=== PATIENT | male | born 1955 | race American Indian/Alaskan Native ===

== ENCOUNTER 2020-01-29 23:19 | Emergency (ER) | payer SELFPAY ==
--- NOTE | 2020-01-30 00:34 | XRay Report ---
HISTORY:right hand pain and swelling. COMPARISON: None. TECHNIQUE: AP lateral and obliques views were obtained FINDINGS: Bones: No fracture or dislocation. Joint spaces: Maintained. Soft tissues: No significant abnormality. Additional findings: None. IMPRESSION: 1. No significant abnormality. Signer Name: Timmy Ybarra MD Signed: 01/30/2020 12:30 AM Workstation Name: [id number]
[2020-01-30] MEDS ORDERED: predniSONE 20 MG TAB PO ONE (02:57)
[2020-01-30] MEDS ORDERED: KETOROLAC 30 MG/1 ML INJ IM ONE (02:57)
--- NOTE | 2020-01-30 03:02 | Emergency Department Report ---
ED Extremity Problem HPI - General Chief complaint: Extremity Injury, Upper Stated complaint: RIGHT HAND SWELLING Time Seen by Provider: 01/30/20 02:50 Source: patient Mode of arrival: Ambulatory Limitations: No Limitations - History of Present Illness Initial comments: 64-year-old -[place] male patient with history of hypertension presents with complaints of right hand pain and swelling x2 days. He denies any injuries to his hand. He rates his pain as a 10/10 in severity and states he has decreased range of motion of the hand. He denies numbness/tingling/weakness, known insect bite, or fever/chills/sweats. He does report history of gout in his knee once. Location: right History of Same: No -: No myalgia, No fever Severity scale (0 -10): 10 Quality: aching, constant Consistency: constant Improves with: nothing - Related Data Previous Rx's Medication Instructions Recorded Last Taken Type Acetaminophen/Codeine [Tylenol 1 tab PO Q6H PRN #8 tab 01/30/20 Unknown Rx /Codeine # 3 tab] Clindamycin [Clindamycin CAP] 300 mg PO Q6H 10 Days #40 capsule 01/30/20 Unknown Rx predniSONE [Deltasone] 20 mg PO TID 3 Days #9 tab 01/30/20 Unknown Rx Allergies Allergy/AdvReac Type Severity Reaction Status Date / Time No Known Allergies Allergy Verified 01/29/20 23:26 ED Review of Systems ROS: Stated complaint: RIGHT HAND SWELLING Other details as noted in HPI Constitutional: denies: chills, diaphoresis, fever, malaise, weakness Musculoskeletal: joint swelling, arthralgia Skin: change in color. denies: rash, lesions Neurological: denies: numbness, paresthesias ED Past Medical Hx - Past Medical History Previous Medical History?: Yes Hx Hypertension: Yes - Surgical History Past Surgical History?: No - Social History Smoking Status: Current Some Day Smoker Substance Use Type: None - Medications Home Medications: Home Medications Medication Instructions Recorded Confirmed Last Taken Type Acetaminophen/Codeine [Tylenol 1 tab PO Q6H PRN #8 tab 01/30/20 Unknown Rx /Codeine # 3 tab] Clindamycin [Clindamycin CAP] 300 mg PO Q6H 10 Days #40 capsule 01/30/20 Unknown Rx predniSONE [Deltasone] 20 mg PO TID 3 Days #9 tab 01/30/20 Unknown Rx ED Physical Exam - General Limitations: No Limitations General appearance: alert, in no apparent distress - Head Head exam: Present: atraumatic, normocephalic - Eye Eye exam: Present: normal appearance. Absent: scleral icterus - Respiratory Respiratory exam: Absent: respiratory distress - Cardiovascular Cardiovascular Exam: Present: regular rate - Expanded Upper Extremity Exam Right Forearm Wrist exam: Present: normal inspection Hand Wrist exam: Present: tenderness, swelling, erythema, other (Moderate swelling, warmth, and erythema noted to dorsal aspect of right hand. Decreased range of motion of the fingers noted secondary to pain. Normal perfusion and sensation noted). Absent: deformity ED Course Vital Signs 01/29/20 01/30/20 01/30/20 23:26 03:00 04:15 Temperature 97.6 F 98.9 F Pulse Rate 94 H 88 Respiratory 18 18 18 Rate Blood Pressure 196/118 Blood Pressure 184/96 187/89 [Left] O2 Sat by Pulse 99 100 100 Oximetry ED Medical Decision Making - Lab Data Result diagrams: 01/30/20 03:03 01/30/20 03:03 Lab Results 01/30/20 01/30/20 01/30/20 Range/Units 03:03 03:03 03:08 WBC 11.6 H (4.5-11.0) K/mm3 RBC 4.99 (3.65-5.03) M/mm3 Hgb 16.1 H (11.8-15.2) gm/dl Hct 46.8 H (35.5-45.6) % MCV 94 (84-94) fl MCH 32 (28-32) pg MCHC 34 (32-34) % RDW 12.8 L (13.2-15.2) % Plt Count 273 (140-440) K/mm3 Lymph % (Auto) 16.2 (13.4-35.0) % Coleman % (Auto) 9.0 H (0.0-7.3) % Eos % (Auto) 0.6 (0.0-4.3) % Baso % (Auto) 0.5 (0.0-1.8) % Lymph # 1.9 (1.2-5.4) K/mm3 Coleman # 1.0 H (0.0-0.8) K/mm3 Eos # 0.1 (0.0-0.4) K/mm3 Baso # 0.1 (0.0-0.1) K/mm3 Seg Neutrophils % 73.7 H (40.0-70.0) % Seg Neutrophils # 8.6 H (1.8-7.7) K/mm3 Sodium 135 L (137-145) mmol/L Potassium 4.2 (3.6-5.0) mmol/L Chloride 97.3 L (98-107) mmol/L Carbon Dioxide 21 L (22-30) mmol/L Anion Gap 21 mmol/L BUN 20 (9-20) mg/dL Creatinine 1.0 (0.8-1.5) mg/dL Estimated GFR > 60 ml/min BUN/Creatinine Ratio 20 % Glucose 109 H (75-100) mg/dL Uric Acid 6.2 (3.5-7.6) mg/dL Calcium 9.8 (8.4-10.2) mg/dL - Radiology Data Radiology results: report reviewed Procedure(s): XR hand 3+V RT Accession Number(s): [id number] cc: ED DOC, Fluoro Time In Minutes: HISTORY:right hand pain and swelling. COMPARISON: None. TECHNIQUE: AP lateral and obliques views were obtained FINDINGS: Bones: No fracture or dislocation. Joint spaces: Maintained. Soft tissues: No significant abnormality. Additional findings: None. IMPRESSION: 1. No significant abnormality. - Medical Decision Making Patient here with complaints of sudden onset of right hand pain and swelling x2 days. On exam, the dorsal aspect of the hand is significantly erythemic and tender with moderate swelling. X-ray of the hand is normal. CBC shows mildly elevated white count at 11.6. Uric acid is normal. Vitals are stable and patient is afebrile. Cellulitis versus gout. Will treat for cellulitis with clindamycin. Recommend follow-up with primary care provider within 3 days. D iscussed strict return precautions in great detail with patient who verbalizes understanding. Also discussed need for follow-up with a primary care provider concerning uncontrolled hypertension. Critical care attestation.: If time is entered above; I have spent that time in minutes in the direct care of this critically ill patient, excluding procedure time. ED Disposition Clinical Impression: Cellulitis of right hand, Uncontrolled hypertension Disposition: TO HOME OR SELFCARE Is pt being admited?: No Condition: Stable Instructions: Cellulitis (ED), Acute Gouty Arthritis (ED), Hypertension (ED) Prescriptions: Clindamycin [Clindamycin CAP] 300 mg PO Q6H 10 Days #40 capsule predniSONE [Deltasone] 20 mg PO TID 3 Days #9 tab Acetaminophen/Codeine [Tylenol /Codeine # 3 tab] 1 tab PO Q6H PRN #8 tab PRN Reason: Pain , Severe (7-10) Referrals: KARY HOLGUIN MD [Staff Physician] - 02/02/20 Forms: Work/School Release Form(ED)
[2020-01-30] MEDS ORDERED: hydrALAZINE 25 MG TAB PO ONE (03:17)
[2020-01-30] MEDS ORDERED: hydrALAZINE 25 MG TAB ONE (03:17)
[2020-01-30 03:20] LABS: Basophils # (Auto) 0.1 K/mm3 (0.0-0.1); Basophils % (Auto) 0.5 % (0.0-1.8); Eosinophils # (Auto) 0.1 K/mm3 (0.0-0.4); Eosinophils % (Auto) 0.6 % (0.0-4.3); Hematocrit 46.8 % (35.5-45.6); Hemoglobin 16.1 gm/dl (11.8-15.2); Lymphocytes # (Auto) 1.9 K/mm3 (1.2-5.4); Lymphocytes % (Auto) 16.2 % (13.4-35.0); Mean Corpuscular HGB Conc 34 % (32-34); Mean Corpuscular Volume 94 fl (84-94); Platelet Count 273 K/mm3 (140-440); Red Blood Count 4.99 M/mm3 (3.65-5.03); Red Cell Distribution Width 12.8 % (13.2-15.2)
[2020-01-30 03:36] LABS: BUN/Creatinine Ratio 20; Blood Urea Nitrogen 20 mg/dL (9-20); Calcium 9.8 mg/dL (8.4-10.2); Hemolysis Index 17
[2020-01-30 04:17] VITALS: BP 187/89
== END 2020-01-30 04:39 | disposition home or self-care (01) ==
LOC: ED 23:19
DX: L03.113 Cellulitis of right upper limb (principal); I10 Essential (primary) hypertension; F17.200 Nicotine dependence, unspecified, uncomplicated
CPT/HCPCS: 36415; 73130; 80048; 84550; 85025; 96372; 99284; J1885; J7512

== ENCOUNTER 2020-11-01 07:42 | Emergency (ER) | payer SELFPAY ==
[2020-11-01 07:54] VITALS: BP 178/95
--- NOTE | 2020-11-01 09:20 | Emergency Department Report ---
ED General Adult HPI - General Chief complaint: Extremity Injury, Lower Stated complaint: RT LEG PAIN PUI?: No Time Seen by Provider: 11/01/20 09:17 Source: patient Mode of arrival: Ambulatory Limitations: No Limitations - History of Present Illness Initial comments: Patient is a 65-year-old -Turkish male comes to the ER complaining of right knee and right great toe pain. He states this is his usual gout pain. However, he is out of his colchicine. He denies any trauma. He denies any calf pain or hip pain. He denies any fall. He states he was working yesterday and the gout pain became so severe he had to leave work. He is ambulatory and nontoxic on arrival to the ER. Patient states the pain is just a constant dull aching severe pain nothing makes it better movement makes it somewhat worse. Patient has taken nothing at home prior to arrival to relieve the pain. -: Gradual, days(s) - Related Data Previous Rx's Medication Instructions Recorded Last Taken Type Colchicine 0.6 mg PO DAILY #11 capsule 11/01/20 Unknown Rx Ibuprofen [Motrin] 800 mg PO Q8HR PRN #30 tablet 11/01/20 Unknown Rx predniSONE [Deltasone] 20 mg PO DAILY #5 tablet 11/01/20 Unknown Rx Allergies Allergy/AdvReac Type Severity Reaction Status Date / Time No Known Allergies Allergy Verified 01/29/20 23:26 ED Review of Systems ROS: Stated complaint: RT LEG PAIN Other details as noted in HPI Comment: All other systems reviewed and negative ED Past Medical Hx - Past Medical History Hx Hypertension: Yes Additional medical history: gout - Surgical History Past Surgical History?: No - Family History Family history: no significant - Social History Smoking Status: Never Smoker Substance Use Type: None - Medications Home Medications: Home Medications Medication Instructions Recorded Confirmed Last Taken Type Colchicine 0.6 mg PO DAILY #11 capsule 11/01/20 Unknown Rx Ibuprofen [Motrin] 800 mg PO Q8HR PRN #30 tablet 11/01/20 Unknown Rx predniSONE [Deltasone] 20 mg PO DAILY #5 tablet 11/01/20 Unknown Rx ED Physical Exam - General Limitations: No Limitations General appearance: alert, in no apparent distress - Head Head exam: Present: atraumatic, normocephalic - Eye Eye exam: Present: normal appearance - ENT ENT exam: Present: mucous membranes moist - Neck Neck exam: Present: normal inspection - Respiratory Respiratory exam: Present: normal lung sounds bilaterally. Absent: respiratory distress - Cardiovascular Cardiovascular Exam: Present: regular rate, normal rhythm. Absent: systolic murmur, diastolic murmur, rubs, gallop - GI/Abdominal GI/Abdominal exam: Present: soft, normal bowel sounds - Rectal Rectal exam: Present: deferred - Extremities Exam Extremities exam: Present: normal inspection - Back Exam Back exam: Present: normal inspection - Neurological Exam Neurological exam: Present: alert, oriented X3 - Psychiatric Psychiatric exam: Present: normal affect, normal mood - Skin Skin exam: Present: warm, dry, intact, normal color. Absent: rash ED Course Vital Signs 11/01/20 07:52 Temperature 97.3 F L Pulse Rate 94 H Respiratory 20 Rate Blood Pressure 178/95 O2 Sat by Pulse 97 Oximetry ED Medical Decision Making - Medical Decision Making Patient has acute on chronic gout. He has been educated on diet and alcohol use and its relation to gout. He is also been educated on the need to have a follow-up primary care physician that can give him his medications as needed for his gout. Patient is neurovascularly intact. He has +2 DP and PT pulses bilaterally his calf is nontender. He has no effusion of either knee. His hips are nontender and he is ambulatory. Patient being discharged home with follow-up instructions including diet, activity, medications and follow-up. Patient verbalizes understanding of discharge plan of care Vital Signs 11/01/20 07:52 Temperature 97.3 F L Pulse Rate 94 H Respiratory 20 Rate Blood Pressure 178/95 O2 Sat by Pulse 97 Oximetry - Differential Diagnosis a/c gout Critical care attestation.: If time is entered above; I have spent that time in minutes in the direct care of this critically ill patient, excluding procedure time. ED Disposition Clinical Impression: Gout flare, History of chronic hypertension, Nonadherence to medication Disposition: DC-01 TO HOME OR SELFCARE Is pt being admited?: No Does the pt Need Aspirin: No Condition: Stable Instructions: Low-Purine Eating Plan Additional Instructions: Diet as tolerated. Avoid alcohol and red meats see instructions attached Hydrate well with water Medications as ordered today Follow-up with PCP given below. He can help you get your blood pressure medications. Hold onto the prescription card and I have given you today it will help you with discounted medications. Warm compresses may help with your pain. Prescriptions: Colchicine 0.6 mg PO DAILY #11 capsule predniSONE [Deltasone] 20 mg PO DAILY #5 tablet Ibuprofen [Motrin] 800 mg PO Q8HR PRN #30 tablet PRN Reason: Pain, Moderate (4-6) Referrals: KARY HOLGUIN MD [Staff Physician] - 3-5 Days Forms: Work/School Release Form(ED), Work/School Release Form Time of Disposition: 09:18
== END 2020-11-01 09:37 | disposition home or self-care (01) ==
LOC: ED 07:42
DX: M10.9 Gout, unspecified (principal); I10 Essential (primary) hypertension; Z91.19 Patient's noncompliance with other medical treatment and regimen; Z79.899 Other long term (current) drug therapy
CPT/HCPCS: 99282

== ENCOUNTER 2021-03-30 06:46 | Emergency (ER) | payer SELFPAY ==
[2021-03-30] MEDS ORDERED: dexAMETHasone 20 MG/5 ML VIAL IM ONE (10:14)
[2021-03-30] MEDS ORDERED: HYDROcodone/ACETAMINOPHEN 5-325 MG TAB PO ONE (10:14)
[2021-03-30] MEDS ORDERED: KETOROLAC 30 MG/1 ML INJ IM ONE (10:14)
--- NOTE | 2021-03-30 10:21 | Emergency Department Report ---
ED General Adult HPI - General Chief complaint: Extremity Injury, Upper Stated complaint: LT HAND SWELLING Time Seen by Provider: 03/30/21 10:10 Source: patient Mode of arrival: Ambulatory Limitations: No Limitations - History of Present Illness Initial comments: 65-year-old male with past history of gout presenting with complaints of pain to his left hand, gradual onset yesterday. Reports there is associated swelling but denies fevers or systemic complaints. States that this is the same thing that happened when he was diagnosed with gout about 6 months ago. Pain is moderate, worse with movement, better with rest. - Related Data Previous Rx's Medication Instructions Recorded Last Taken Type Ibuprofen [Motrin] 800 mg PO Q8HR PRN #30 tablet 11/01/20 Unknown Rx predniSONE [Deltasone] 20 mg PO DAILY #5 tablet 11/01/20 Unknown Rx Colchicine 0.6 mg PO DAILY #3 tab 03/30/21 Unknown Rx Indomethacin 50 mg PO Q8H #21 capsule 03/30/21 Unknown Rx dexAMETHasone [Dexamethasone] 4 mg PO DAILY #5 tablet 03/30/21 Unknown Rx Allergies Allergy/AdvReac Type Severity Reaction Status Date / Time No Known Allergies Allergy Verified 01/29/20 23:26 ED Review of Systems ROS: Stated complaint: LT HAND SWELLING Other details as noted in HPI Comment: All other systems reviewed and negative ED Past Medical Hx - Past Medical History Hx Hypertension: Yes Additional medical history: gout - Surgical History Past Surgical History?: No - Social History Smoking Status: Never Smoker - Medications Home Medications: Home Medications Medication Instructions Recorded Confirmed Last Taken Type Ibuprofen [Motrin] 800 mg PO Q8HR PRN #30 tablet 11/01/20 Unknown Rx predniSONE [Deltasone] 20 mg PO DAILY #5 tablet 11/01/20 Unknown Rx Colchicine 0.6 mg PO DAILY #3 tab 03/30/21 Unknown Rx Indomethacin 50 mg PO Q8H #21 capsule 03/30/21 Unknown Rx dexAMETHasone [Dexamethasone] 4 mg PO DAILY #5 tablet 03/30/21 Unknown Rx ED Physical Exam - General Limitations: No Limitations General appearance: alert, in no apparent distress - Head Head exam: Present: atraumatic, normocephalic - Eye Eye exam: Present: normal appearance - ENT ENT exam: Present: mucous membranes moist - Neck Neck exam: Present: normal inspection - Respiratory Respiratory exam: Absent: respiratory distress - Extremities Exam Extremities exam: Present: other (There is swelling to the left hand diffusely with slightly restricted range of motion, no erythema or warmth, normal cap refill, sensation intact, normal radial pulse) - Back Exam Back exam: Present: normal inspection - Neurological Exam Neurological exam: Present: alert, oriented X3 - Psychiatric Psychiatric exam: Present: normal affect, normal mood - Skin Skin exam: Present: warm, dry, intact, normal color. Absent: rash ED Course Vital Signs 03/30/21 07:21 Temperature 98.5 F Pulse Rate 95 H Respiratory 18 Rate Blood Pressure 178/88 O2 Sat by Pulse 97 Oximetry ED Medical Decision Making - Medical Decision Making Patient presents with atraumatic left hand pain and swelling since yesterday. He reports a history of gout and states that this feels the same. On exam the left hand is diffusely swollen, neurovascular intact. We will treat with Toradol Decadron, outpatient prescription and referred to primary for follow- up. - Differential Diagnosis Gout, pseudogout, cellulitis Critical care attestation.: If time is entered above; I have spent that time in minutes in the direct care of this critically ill patient, excluding procedure time. ED Disposition Clinical Impression: Gout of hand Qualifiers: Gout etiology: unspecified cause Chronicity: acute Laterality: left Qualified Code(s): M10.9 - Gout, unspecified Disposition: TO HOME OR SELFCARE Is pt being admited?: No Condition: Good Instructions: Low-Purine Eating Plan Prescriptions: Colchicine 0.6 mg PO DAILY #3 tab dexAMETHasone [Dexamethasone] 4 mg PO DAILY #5 tablet Indomethacin 50 mg PO Q8H #21 capsule Referrals: PRIMARY CARE, [Primary Care Provider] - 3-5 Days Time of Disposition: 10:23
[2021-03-30 11:34] VITALS: BP 164/80
== END 2021-03-30 11:05 | disposition home or self-care (01) ==
LOC: ED 06:46
DX: M10.9 Gout, unspecified (principal); I10 Essential (primary) hypertension; Z79.1 Long term (current) use of non-steroidal anti-inflammatories (NSAID); Z79.899 Other long term (current) drug therapy
CPT/HCPCS: 96372; 99282; J1100; J1885

== ENCOUNTER 2021-09-17 08:00 | Emergency (ER) | payer MEDICARE ==
[2021-09-17 10:31] VITALS: BP 188/102
--- NOTE | 2021-09-17 10:36 | Emergency Department Report ---
ED General Adult HPI - General Chief complaint: Extremity Problem,Nontraumatic Stated complaint: hands swollen Time Seen by Provider: 09/17/21 10:12 Source: patient Mode of arrival: Ambulatory Limitations: No Limitations - History of Present Illness Initial comments: Patient is a 66-year-old male presents emergency room complaints of left hand swelling that began a couple days ago. Patient has a history of gout and arthritis. He denies any fall or injury. He denies any numbness or weakness. He denies any redness or rashes. Patient has a past medical history of hypertension. He states that he has not seen a doctor in approximately a year or 2 and is not currently taking any blood pressure medicine. He is not sure what he was previously taking. No allergies to medications. - Related Data Previous Rx's Medication Instructions Recorded Last Taken Type Ibuprofen [Motrin] 800 mg PO Q8HR PRN #30 tablet 11/01/20 Unknown Rx predniSONE [Deltasone] 20 mg PO DAILY #5 tablet 11/01/20 Unknown Rx Colchicine 0.6 mg PO DAILY #3 tab 03/30/21 Unknown Rx Indomethacin 50 mg PO Q8H #21 capsule 03/30/21 Unknown Rx dexAMETHasone [Dexamethasone] 4 mg PO DAILY #5 tablet 03/30/21 Unknown Rx Colchicine 0.6 mg PO DAILY 1 Days #3 tablet 09/17/21 Unknown Rx Indomethacin 50 mg PO Q8H #21 capsule 09/17/21 Unknown Rx amLODIPine 5 mg PO DAILY #30 tab 09/17/21 Unknown Rx predniSONE [Deltasone] 40 mg PO DAILY 5 Days #10 tablet 09/17/21 Unknown Rx Allergies Allergy/AdvReac Type Severity Reaction Status Date / Time No Known Allergies Allergy Verified 09/17/21 08:09 ED Review of Systems ROS: Stated complaint: hands swollen Other details as noted in HPI Comment: All other systems reviewed and negative ED Past Medical Hx - Past Medical History Hx Hypertension: Yes Additional medical history: gout - Social History Smoking Status: Never Smoker - Medications Home Medications: Home Medications Medication Instructions Recorded Confirmed Last Taken Type Ibuprofen [Motrin] 800 mg PO Q8HR PRN #30 tablet 11/01/20 Unknown Rx predniSONE [Deltasone] 20 mg PO DAILY #5 tablet 11/01/20 Unknown Rx Colchicine 0.6 mg PO DAILY #3 tab 03/30/21 Unknown Rx Indomethacin 50 mg PO Q8H #21 capsule 03/30/21 Unknown Rx dexAMETHasone [Dexamethasone] 4 mg PO DAILY #5 tablet 03/30/21 Unknown Rx Colchicine 0.6 mg PO DAILY 1 Days #3 tablet 09/17/21 Unknown Rx Indomethacin 50 mg PO Q8H #21 capsule 09/17/21 Unknown Rx amLODIPine 5 mg PO DAILY #30 tab 09/17/21 Unknown Rx predniSONE [Deltasone] 40 mg PO DAILY 5 Days #10 tablet 09/17/21 Unknown Rx ED Physical Exam - General Limitations: No Limitations General appearance: alert, in no apparent distress - Head Head exam: Present: atraumatic, normocephalic - Eye Eye exam: Present: normal appearance - ENT ENT exam: Present: mucous membranes moist - Extremities Exam Extremities exam: Present: other (edema to the left hand with mild increased warmth, no erythema, no skin changes, no rashes, FROM, neurovascularly intact) - Neurological Exam Neurological exam: Present: alert, oriented X3 - Psychiatric Psychiatric exam: Present: normal affect, normal mood - Skin Skin exam: Present: warm, dry, intact ED Course Vital Signs 09/17/21 08:11 Pulse Rate 101 H Respiratory 18 Rate Blood Pressure 188/102 O2 Sat by Pulse 98 Oximetry ED Medical Decision Making - Medical Decision Making Patient is a 66-year-old male presents emergency room complaints of left hand swelling that began a couple days ago. Patient has a history of gout and arthritis. He denies any fall or injury. He denies any numbness or weakness. He denies any redness or rashes. Patient has a past medical history of hypertension. He states that he has not seen a doctor in approximately a year or 2 and is not currently taking any blood pressure medicine. He is not sure what he was previously taking. No allergies to medications. on exam: edema to the left hand with mild increased warmth, no erythema, no skin changes, no rashes, FROM, neurovascularly intact. Vitals with elevated blood pressure, patient has not taken blood pressure medication in over a year. Patient will be started on amlodipine and advised primary care follow-up and lifestyle modifications for examination appears consistent with gout versus another arthropathy. Patient has had no trauma, patient has no signs of infection or septic joint at this time. Patient given prescription for medication. advised pt Please take medication as prescribed. Follow-up with a primary care doctor. Eat a low-sodium diet, increase your water intake. Please keep a blood pressure log and take this with a primary care doctor. Return to emergency room for any new or worsening symptoms. Critical care attestation.: If time is entered above; I have spent that time in minutes in the direct care of this critically ill patient, excluding procedure time. ED Disposition Clinical Impression: Elevated blood pressure reading Gout of left hand Qualifiers: Gout etiology: unspecified cause Chronicity: acute Qualified Code(s): M10.9 - Gout, unspecified Disposition: HOME / SELF CARE / HOMELESS Is pt being admited?: No Does the pt Need Aspirin: No Condition: Stable Instructions: Low-Purine Eating Plan, Managing Your Hypertension Additional Instructions: Please take medication as prescribed. Follow-up with a primary care doctor. Eat a low-sodium diet, increase your water intake. Please keep a blood pressure log and take this with a primary care doctor. Return to emergency room for any new or worsening symptoms. Prescriptions: amLODIPine 5 mg PO DAILY #30 tab Colchicine 0.6 mg PO DAILY 1 Days #3 tablet predniSONE [Deltasone] 40 mg PO DAILY 5 Days #10 tablet Indomethacin 50 mg PO Q8H #21 capsule Referrals: KARY HOLGUIN MD [Staff Physician] - 3-5 Days [facility] [Outside] - 3-[address] [facility] [place] [Outside] - 3-5 Days [facility], [LAB/CONTRACT] - 3-5 Days Time of Disposition: 10:33 Print Language: ARMENIAN
== END 2021-09-17 10:54 | disposition home or self-care (01) ==
LOC: ED 08:00
DX: M10.9 Gout, unspecified (principal); I10 Essential (primary) hypertension
CPT/HCPCS: 99282

== ENCOUNTER 2021-11-18 07:35 | Emergency (ER) | payer MEDICARE ==
[2021-11-18 07:42] VITALS: BP 178/111
--- NOTE | 2021-11-18 08:17 | Emergency Department Report ---
ED Extremity Problem HPI - General Chief complaint: Extremity Problem,Nontraumatic Stated complaint: ARM SWOLLEN Time Seen by Provider: 11/18/21 08:03 Source: patient Mode of arrival: Ambulatory Limitations: No Limitations - History of Present Illness Initial comments: Patient presents primarily due to left hand pain and swelling. He has had a history of gout. This is affected his hand before. It is also affected his left knee. He came in today for evaluation and treatment because of that. Patient has not been on colchicine or allopurinol. His blood pressure was elevated, but he has no chest pain or shortness of breath. His focus is on pain and swelling in the left hand which is happened before. He is right-hand dominant. Patient has no trauma. There has been no fever or chills. Has no cough or congestion. He admits that he has been trying to watch his diet but over the holidays, that might have fallen to the [place] a little bit. Patient states that he did have a history of hypertension. He was on medication previously. He states that his regular doctor took him off medication because of blood pressure had improved. - Related Data Previous Rx's Medication Instructions Recorded Last Taken Type amLODIPine 5 mg PO DAILY #30 tab 09/17/21 Unknown Rx Colchicine 0.6 mg PO DAILY #7 tablet 11/18/21 Unknown Rx dexAMETHasone [Dexamethasone] 4 mg PO DAILY #5 tablet 11/18/21 Unknown Rx Allergies Allergy/AdvReac Type Severity Reaction Status Date / Time No Known Allergies Allergy Verified 09/17/21 08:09 ED Review of Systems ROS: Stated complaint: ARM SWOLLEN Other details as noted in HPI Comment: All other systems reviewed and negative Constitutional: denies: fever Eyes: denies: vision change ENT: denies: epistaxis Respiratory: denies: cough Cardiovascular: denies: chest pain Endocrine: denies: unexplained weight loss Gastrointestinal: denies: hematemesis Genitourinary: denies: hematuria Musculoskeletal: as per HPI Skin: denies: rash Neurological: denies: headache Hematological/Lymphatic: denies: easy bruising ED Past Medical Hx - Past Medical History Hx Hypertension: Yes Additional medical history: gout - Family History Family history: hypertension - Social History Smoking Status: Never Smoker - Medications Home Medications: Home Medications Medication Instructions Recorded Confirmed Last Taken Type amLODIPine 5 mg PO DAILY #30 tab 09/17/21 Unknown Rx Colchicine 0.6 mg PO DAILY #7 tablet 11/18/21 Unknown Rx dexAMETHasone [Dexamethasone] 4 mg PO DAILY #5 tablet 11/18/21 Unknown Rx ED Physical Exam - General Limitations: No Limitations, Other (Pulse ox noted and normal) General appearance: alert, in no apparent distress, other (Nontoxic) - Head Head exam: Present: atraumatic, normocephalic - Eye Eye exam: Present: normal appearance, EOMI - ENT ENT exam: Present: normal orophraynx, normal external ear exam - Neck Neck exam: Present: normal inspection. Absent: meningismus - Respiratory Respiratory exam: Absent: respiratory distress - Cardiovascular Cardiovascular Exam: Present: other (Pulses equal and symmetric). Absent: JVD - Extremities Exam Extremities exam: Present: normal capillary refill, other (There is diffuse tenderness with edema involving the left hand and wrist. There is limited range of motion due to pain. There is no warmth or erythema associated with this. There is no point tenderness.). Absent: calf tenderness - Back Exam Back exam: Absent: CVA tenderness (R), CVA tenderness (L) - Neurological Exam Neurological exam: Present: alert, oriented X3, CN II-XII intact, normal gait - Psychiatric Psychiatric exam: Present: normal affect, normal mood - Skin Skin exam: Present: warm, dry ED Course Vital Signs 11/18/21 07:40 Temperature 98.3 F Pulse Rate 113 H Respiratory 17 Rate Blood Pressure 178/111 O2 Sat by Pulse 97 Oximetry - Reevaluation(s) Reevaluation #1: 11/18/21 08:45 Patient was discharged. Old records noted. ED Medical Decision Making - Medical Decision Making Patient presents with pain and swelling in the left hand and wrist that is nontraumatic. He has a history of gout and states this is happened before. This would be consistent with a gout exacerbation. He was treated symptomat ically. There is no warmth or erythema suggestive of infectious process. There is no trauma to suggest fracture or dislocation. Patient also has elevated blood pressure reading here. This could be pain induced. We have discussed salt free diet. We discussed blood pressure checks at home. He can follow-up with his primary care physician with a blood pressure log. He has no symptomatology suggestive of endorgan damage at this point. Critical Care Time: No Critical care attestation.: If time is entered above; I have spent that time in minutes in the direct care of this critically ill patient, excluding procedure time. ED Disposition Clinical Impression: Exacerbation of gout, Elevated blood pressure reading Disposition: 01 HOME / SELF CARE / HOMELESS Is pt being admited?: No Condition: Stable Instructions: Low-Purine Eating Plan, Preventing Hypertension, Managing Your Hypertension Additional Instructions: limit salt and fatty foods. drink water. return for problems. check your blood pressure at home. see a regular doctor for recheck. Prescriptions: Colchicine 0.6 mg PO DAILY #7 tablet dexAMETHasone [Dexamethasone] 4 mg PO DAILY #5 tablet Referrals: PRIMARY CAREMD [Primary Care Provider] - 3-5 Days KARY HOLGUIN MD [Staff Physician] - 3-5 Days
== END 2021-11-18 08:47 | disposition home or self-care (01) ==
LOC: ED 07:35
DX: M10.9 Gout, unspecified (principal); R03.0 Elevated blood-pressure reading, without diagnosis of hypertension; I10 Essential (primary) hypertension; Z79.899 Other long term (current) drug therapy
CPT/HCPCS: 99282

== ENCOUNTER 2022-01-31 08:13 | Emergency (ER) | payer MEDICARE ==
[2022-01-31 09:31] VITALS: BP 181/93
--- NOTE | 2022-01-31 10:39 | Emergency Department Report ---
ED Back Pain/Injury HPI - General Chief Complaint: Back Pain/Injury Stated Complaint: BACK PAIN Time Seen by Provider: 01/31/22 10:34 Source: patient Limitations: No Limitations - History of Present Illness Initial Comments: 66-year-old black male presents to the emergency department for evaluation of bilateral lower back pain. He states that he carried a water tank up a flight of stairs on Thursday and has been having pain and spasms in his back since then. He denies fever, urinary symptoms, and saddle anesthesia. He states that pain is generally worse at night and he rates it 9 out of 10 but pain is nonradiating. MD Complaint: back pain -: Gradual, days(s) Similar Symptoms Previously: No Place: work Radiation: none Severity: severe Quality: aching Consistency: now resolved Worsens With: walking Associated Symptoms: denies: weakness, chest pain, numbness, cough, difficulty urinating, diaphoresis, incontinence, fever/chills, abdominal pain, loss of appetite, malaise, nausea/vomiting, rash, seizure, shortness of breath, syncope - Related Data Previous Rx's Medication Instructions Recorded Last Taken Type amLODIPine 5 mg PO DAILY #30 tab 09/17/21 Unknown Rx Colchicine 0.6 mg PO DAILY #7 tablet 11/18/21 Unknown Rx dexAMETHasone [Dexamethasone] 4 mg PO DAILY #5 tablet 11/18/21 Unknown Rx Cyclobenzaprine [Flexeril] 10 mg PO TID PRN #21 tab 01/31/22 Unknown Rx Lidocaine [Lidoderm] 1 each TP DAILY #10 patch 01/31/22 Unknown Rx Naproxen [Naprosyn] 500 mg PO BID #14 tab 01/31/22 Unknown Rx Allergies Allergy/AdvReac Type Severity Reaction Status Date / Time No Known Allergies Allergy Verified 09/17/21 08:09 ED Review of Systems ROS: Stated complaint: BACK PAIN Other details as noted in HPI Comment: All other systems reviewed and negative Constitutional: denies: chills, diaphoresis, fever, malaise, weakness Eyes: denies: eye pain, eye discharge ENT: denies: ear pain, throat pain, dental pain, hearing loss Respiratory: denies: cough, shortness of breath, SOB with exertion, SOB at rest Cardiovascular: denies: chest pain, palpitations, dyspnea on exertion, orthopnea, edema, syncope Endocrine: no symptoms reported Gastrointestinal: denies: abdominal pain, nausea, vomiting, diarrhea, hematemesis, melena, hematochezia Genitourinary: denies: urgency, dysuria, frequency, hematuria, discharge, testicular pain Musculoskeletal: back pain Skin: denies: rash, lesions Neurological: denies: headache, weakness, numbness, paresthesias, confusion Psychiatric: denies: anxiety, depression Hematological/Lymphatic: denies: easy bleeding, easy bruising ED Past Medical Hx - Past Medical History Hx Hypertension: Yes Additional medical history: gout - Social History Smoking Status: Never Smoker - Medications Home Medications: Home Medications Medication Instructions Recorded Confirmed Last Taken Type amLODIPine 5 mg PO DAILY #30 tab 09/17/21 Unknown Rx Colchicine 0.6 mg PO DAILY #7 tablet 11/18/21 Unknown Rx dexAMETHasone [Dexamethasone] 4 mg PO DAILY #5 tablet 11/18/21 Unknown Rx Cyclobenzaprine [Flexeril] 10 mg PO TID PRN #21 tab 01/31/22 Unknown Rx Lidocaine [Lidoderm] 1 each TP DAILY #10 patch 01/31/22 Unknown Rx Naproxen [Naprosyn] 500 mg PO BID #14 tab 01/31/22 Unknown Rx ED Physical Exam - General Limitations: No Limitations General appearance: alert, in no apparent distress - Head Head exam: Present: atraumatic, normocephalic - Eye Eye exam: Present: normal appearance. Absent: conjunctival injection - Neck Neck exam: Present: normal inspection. Absent: tenderness - Respiratory Respiratory exam: Present: normal lung sounds bilaterally. Absent: respiratory distress, wheezes, rales, rhonchi, stridor - Cardiovascular Cardiovascular Exam: Present: regular rate, normal heart sounds - GI/Abdominal GI/Abdominal exam: Present: soft, normal bowel sounds. Absent: distended, tenderness, guarding, rebound, rigid - Extremities Exam Extremities exam: Present: normal inspection - Back Exam Back exam: Present: normal inspection. Absent: tenderness, CVA tenderness (R), CVA tenderness (L), paraspinal tenderness, vertebral tenderness - Neurological Exam Neurological exam: Present: alert, oriented X3, CN II-XII intact, normal gait, motor sensory deficit, reflexes normal - Psychiatric Psychiatric exam: Present: normal affect, normal mood - Skin Skin exam: Present: warm, dry, intact, normal color ED Course Vital Signs 01/31/22 09:30 Temperature 98.7 F Pulse Rate 88 Respiratory 17 Rate Blood Pressure 181/93 O2 Sat by Pulse 99 Oximetry ED Medical Decision Making - Medical Decision Making 66-year-old black male presents to the emergency department for evaluation of bilateral lower back pain. He states that he carried a water tank up a flight of stairs on Thursday and has been having pain and spasms in his back since then. He denies fever, urinary symptoms, and saddle anesthesia. He states that pain is generally worse at night and he rates it 9 out of 10 but pain is nonradiating. Patient denies pain at this time and states that pain usually recurs at night. No acute abnormalities noted on examination. Patient will be discharged home with naproxen and Flexeril to take as needed for pain. He is advised to follow- up with his primary care provider for further evaluation. He verbalizes understanding of and agreement with plan of care. Critical care attestation.: If time is entered above; I have spent that time in minutes in the direct care of this critically ill patient, excluding procedure time. ED Disposition Clinical Impression: Back pain Qualifiers: Back pain location: low back pain Chronicity: acute Back pain laterality: bilateral Sciatica presence: without sciatica Qualified Code(s): M54.50 - Low back pain, unspecified Disposition: 01 HOME / SELF CARE / HOMELESS Is pt being admited?: No Does the pt Need Aspirin: No Condition: Stable Instructions: Acute Back Pain, Adult, Back Injury Prevention Additional Instructions: Take medications as prescribed. Follow-up with primary care provider. Prescriptions: Cyclobenzaprine [Flexeril] 10 mg PO TID PRN #21 tab PRN Reason: Muscle Spasm Lidocaine [Lidoderm] 1 each TP DAILY #10 patch Naproxen [Naprosyn] 500 mg PO BID #14 tab Referrals: DEMETRI LARSEN MD [Referring] - 3-5 Days Time of Disposition: 10:39
== END 2022-01-31 11:04 | disposition home or self-care (01) ==
LOC: ED 08:13
DX: M54.50 Low back pain, unspecified (principal); I10 Essential (primary) hypertension
CPT/HCPCS: 99282